=== PATIENT | male | born 1960 | race Caucasian/White ===

== ENCOUNTER 2017-09-08 23:04 | Observation (INO) | payer SELFPAY ==
--- NOTE | ~2017-09-08 | HEMODYNAMI ---
PATIENT:SHANNON GERMAN MEDICAL RECORD: [id number] : 58 [facility] D[id number] ADMISSION DATE: 09/09/17 Generatedon:09/10/201711:06 Patient name: SHANNON GERMAN Patient #: [id number] : 1960 Date of study: 09/10/2017 Page: Of Hemodynamic Procedure Report Patient Data Patient Demographics Procedure consent was obtained First Name: SHANNON Gender: Male Last Name: MAXI : 1960 [facility] Initial: C Age: 57 year(s) Patient #: [id number] Race: Unknown SSN: [id number] Additional ID: [id number] Contact details [address]: [address] [place] [address] State: [place] City: [place] Zip code: [address] Past Medical History Allergies: No known allergies Admission Admission Data Admission Date: 09/09/2017 Admission Time: 9:05 Arrival Date: 09/10/2017 Arrival Time: 0:00 Admit Source: Other Room #: D.2123 Weight (lbs.): 220.46 Weight (kg.): 100 Lab Results Lab Result Date: 09/10/2017 Lab Result Time: 0:00 Biochemistry Name Units Result Min Max BUN mg/dl 16 --(---*)-- 7 18 Creatinine mg/dl 0.9 --(-*--)-- 0.6 1.3 CBC Name Units Result Min Max Hemoglobin g/dl 11.7 *-(----)-- 13.5 17.5 Procedure Procedure Types Cath Procedure Diagnostic Procedure C [facility] w/Coronaries PCI Procedure Coronary Stent Coronary Stent Initial Miscellaneous Procedures Moderate Sedation up to 15 minutes Moderate Sedation up to 30 minutes Procedure Description Procedure Date Procedure Date: 09/10/2017 Procedure Start Time: 10:42 Procedure End Time: 11:03 Procedure Staff Name Function August Alvarado MD Performing Physician Michelle Dejesus RT Monitor Shameka Arias RT Scrub Sammy Segura RN Nurse Procedure Data Cath Procedure Fluoroscopy Diagnostic fluoroscopy Total fluoroscopy Time: 4.3 time: 4.3 min min Diagnostic fluoroscopy Total fluoroscopy dose: 953 dose: 953 mGy mGy Contrast Material Contrast Material Type Amount (ml) Isovue 300 118 Entry Location Entry Primary Successful Side Size Upsize Upsize Entry Closure Succes sful Closure Location (Fr) 1 (Fr) 2 (Fr) Remarks Device Remarks Femoral Right 5 Fr 6 Fr Exoseal artery Short Estimated blood loss: 10 ml Diagnostic catheters Device Type Used For End Catheter Placement Cordis 5Fr JL 4.0 Procedure Catheter (MP) Cordis 5Fr 3DRC Catheter Procedure (MP) Cordis 5Fr Pigtail Procedure Catheter (MP) Procedure Complications No complications Procedure Medications Medication Administration Route Dosage Oxygen NC 2 l/min Lidocaine 2% added to field 20 Heparin Flush Bag added to field 2 bags (1000units/500ml NS) 0.9% NaCl I.V. 100 ml/hr Versed I.V. 1 mg Fentanyl I.V. 50 mcg Versed I.V. 1 mg Fentanyl I.V. 50 mcg Heparin Bolus I.V. 4000 units Integrilin (Bolus I.V. 9 ml 2mg/ml) Plavix P.O. 600 mg Hemodynamics Rest HGB: 11.7 (g/dl) Heart Rate: 82 (bpm) Pressure Samples Time Site Value (mmHg) Purpose Heart Use Rate(bpm) 10:48 LV 138/4,30 Snapshot 77 10:49 AO 137/86(108) Pullback 78 10:49 LV 126/16,31 Pullback 78 Gradients Valve Time Site 1 Site 2 Mean SEP/DFP Peak To Heart Use (mmHg) (sec/min) Peak Rate (mmHg) (bpm) Aortic 10:49 LV AO 0 11 0 78 126/16,31 137/86(108) Calculations Valve P-P Mean Valve Index Valve Source Name Gradient Area Flow (cm2) Aortic 0 0 0 0 Snapshots Pre Cath Intra NCS Post Cath Vital Signs Time Heart Resp SPO2 etCO2 NIBP (mmHg) Rhythm Pain Sedation Rate (ipm) (%) (mmHg) Status Level (bpm) 10:32:27 81 14 95 0 157/87(129) NSR 0 (11) 10(A) , No pain 10:37:18 78 17 98 0 139/95(116) NSR 0 (11) 10(A) , No pain 10:42:06 80 16 96 0 148/93(107) NSR 0 (11) 9(A) , No pain 10:47:01 77 15 97 0 131/72(111) NSR 0 (11) 9(A) , No pain 10:51:48 76 12 97 1.5 140/82(111) NSR 0 (11) 9(A) , No pain 10:56:37 77 14 96 17.4 147/90(109) NSR 0 (11) 9(A) , No pain 11:01:30 76 16 96 0.7 148/84(102) NSR 0 (11) 10(A) , No pain Medications Time Medication Route Dose Verified Delivered Reason Notes Effectiveness by by 10:35:59 Oxygen NC 2 August Buffie used for l/min St. Jevon Segura RN procedure 10:36:07 Lidocaine 2% added 20ml August August for local to vial [facility] anesthetic field MD BACA 10:36:14 Heparin Flush added 2 August August used for Bag to bags [facility] procedure (1000units/500ml field MD BACA NS) 10:36:24 0.9% NaCl I.V. 100 August Christianson Per physician ml/hr St. Jevon Segura RN, MD 10:38:42 Versed I.V. 1 mg August Dacostaie for sedation St. Jevon Segura RN, MD 10:38:48 Fentanyl I.V. 50 August Christianson for sedation mcg St. Jevon Segura RN, MD 10:42:26 Versed I.V. 1 mg August Christianson for sedation St. Jevon Segura RN, MD 10:42:31 Fentanyl I.V. 50 August Dacostaie for sedation mcg St. Jevon Segura RN, MD 10:50:34 Heparin Bolus I.V. 4000 August Christianson for units [facility]. Jevon Segura RN anticoagulation 10:51:53 Integrilin I.V. 9 ml August Dacostaie for (Bolus 2mg/ml) St. Jevon Segura RN antiplatelet therapy 11:05:06 Plavix P.O. 600 August Christianson for mg [facility]. Jevon Segura RN antiplatelet therapy Procedure Log Time Note 10:04:51 Sammy Segura RN sent for patient. Start room use. 10:04:52 Time tracking: Regular hours 10:04:56 Plan of Care:Hemodynamics will remain stable., Cardiac rhythm will remain stable., Comfort level will be maintained., Respiratory function will remain adequate., Patient/ family verbilizes understanding of procedure., Procedure tolerated without complication., Recovers from procedure without complications.. 10:16:44 Procedure type changed to Cath procedure, Diagnostic procedure, LHC, LHC w/Coronaries, PCI procedure, Coronary Stent, Coronary Stent Initial, Miscellaneous Procedures, Moderate Sedation up to 15 minutes, Moderate Sedation up to 30 minutes 10:16:54 Patient Weight : 220.46 lbs 10:24:03 Admit Source: Other 10:24:10 Arrival Date: 09/10/2017 12:00:00 AM 10:25:08 Patient received from ED to CCL 1 Alert and oriented. Tansferred to table in Supine position. 10:31:14 Warm blankets applied, and anne marie hugger turned on for patient comfort. 10:31:15 Correct patient and procedure confirmed by team. 10:31:16 Signed procedure consent form obtained from patient. 10:31:17 ECG and BP/O2 sat monitors applied to patient. 10:31:17 Vital chart was started 10:32:32 Baseline sample Acquired. 10:32:40 Rhythm: sinus rhythm 10:32:42 Full Disclosure recording started 10:32:47 H&P Date Dictated: 09/10/2017 Within 30 days and on chart.. 10:32:49 Pre-procedure instructions explained to patient. 10:32:53 Family in patients room. 10:32:56 Patient NPO since Midnight. 10:33:03 Patient allergic to No known allergies 10:33:06 Is the patient allergic to Iodine/contrast media? No. 10:33:09 Is patient on blood thinner?Yes 10:33:13 ACC The patient was administered the following blood thiners within the last 24 hours: ACCLovenox 10:33:16 Patient diabetic? No. 10:33:21 Snore? Yes 10:33:22 Sleep apnea? No 10:33:31 Patient pain scale 0/10 ?. 10:33:39 IV patent on arrival in left forearm with 0.9% NaCl at KVO. 10:33:45 Lab results completed and on chart. 10:33:50 Right groin area was prepped with chlora-prep and draped in sterile fashion 10:33:52 Alarms reviewed by R. N. 10:33:53 Sharps counted by scrub and verified by R.N. 10:33:54 Physician arrived 10:33:56 --------ALL STOP TIME OUT------ 10:33:57 Final Timeout: patient, procedure, and site verified with staff and physician. All members of the team are in agreement. 10:33:59 Right groin site verified by team. 10:34:03 Physical assessment completed. ASA score P 2 - A patient with mild systemic disease as per August Alvarado MD. 10:34:08 Sedation plan: IV Moderate Sedation Medication:Versed, Fentanyl 10:34:15 Use device set Femoral Dx 10:34:16 Acist Syringe opened to sterile field. 10:34:16 Bag Decanter opened to sterile field. 10:34:17 Medline Cath Pack opened to sterile field. 10:34:17 Terumo 5Fr Madison Sheath opened to sterile field. 10:34:18 St Gurjit 260cm J .035 wire opened to sterile field. 10:34:19 Acist Hand Control opened to sterile field. 10:34:19 Acist Manifold opened to sterile field. 10:34:20 Diagnostic Infinity 5Fr Multipack catheter opened to sterile field. 10:34:20 Tegaderm 4 x 4 opened to sterile field. 10:35:59 Oxygen 2 l/min NC was administered by Sammy Segura RN; used for procedure; 10:36:07 Lidocaine 2% 20ml vial added to field was administered by August Alvarado MD; for local anesthetic; 10:36:14 Heparin Flush Bag (1000units/500ml NS) 2 bags added to field was administered by August Alvarado MD; used for procedure; 10:36:24 0.9% NaCl 100 ml/hr I.V. was administered by Sammy Segura RN; Per physician; 10:38:42 Versed 1 mg I.V. was administered by Sammy Segura RN; for sedation; 10:38:48 Fentanyl 50 mcg I.V. was administered by Sammy Segura RN; for sedation; 10:41:26 Lab Result : BUN 16 mg/dl 10:41:26 Lab Result : Hemoglobin 11.7 g/dl 10:41:26 Lab Result : Creatinine 0.9 mg/dl 10:41:35 Zero performed for pressure channel P1 10:42:26 Versed 1 mg I.V. was administered by Sammy Segura RN; for sedation; 10:42:31 Fentanyl 50 mcg I.V. was administered by Sammy Segura RN; for sedation; 10:42:34 Procedure started. 10:42:56 Local anesthetic to right femoral artery with Lidocaine 2% by August Alvarado MD.INITIAL ACCESS ONLY 10:43:30 A 5 Fr sheath was inserted into the Right Femoral artery 10:44:45 J wire advanced. 10:44:53 A Cordis 5Fr JL 4.0 Catheter (MP) was advanced over the wire and used for Procedure. 10:45:06 LCA angiography performed. 10:46:09 Catheter removed. 10:46:22 A Cordis 5Fr 3DRC Catheter (MP) was advanced over the wire and used for Procedure. 10:46:29 RCA angiography performed. 10:47:27 Catheter removed. 10:47:35 A Cordis 5Fr Pigtail Catheter (MP) was advanced over the wire and used for Procedure. 10:47:38 LV gram done using FERNANDEZ 10:50:34 Heparin Bolus 4000 units I.V. was administered by Sammy Segura RN; for anticoagulation; 10:50:53 EF : 55 % 10:50:57 Catheter removed. 10:51:11 Sheath upsized to a 6 Fr Short. 10:51:35 6 Fr xb3.5 guide catheter was inserted over the wire 10:51:53 Integrilin (Bolus 2mg/ml) 9 ml I.V. was administered by Sammy Segura RN; for antiplatelet therapy; 10:52:40 Whisper wire advanced. 10:53:21 Terumo 6Fr Madison Sheath opened to sterile field. 10:53:22 Giant Swarm BasixCompak Inflation Kit opened to sterile field. 10:53:22 Cordis 6FR XB 3.5 guide catheter opened to sterile field. 10:53:23 Jaime Whisper J 300cm 0.014 guide wire opened to sterile field. 10:55:54 Inflation Number: 1 A TextMastertronic Integrity 3.0 X 12 stent was prepped and advanced across the Dist CX. The stent was deployed at 14 JOEL for 0:24 (min:sec). 10:56:26 Stent catheter was removed intact over wire. 10:59:10 Inflation Number: 1 A Medtronic Integrity 3.0 X 18 stent was prepped and advanced across the Mid CX. The stent was deployed at 14 JOEL for 0:28 (min:sec). 10:59:14 Stent catheter was removed intact over wire. 10:59:29 Wire removed. 10:59:30 Guide catheter removed. 10:59:39 Cordis 6Fr Exoseal opened to sterile field. 11:00:55 Sheath removed intact; hemostasis achieved with Exoseal to the Right Femoral artery. 11:00:59 Procedure ended.(Physican Out) 11:01:10 Fluoroscopy time 04.30 minutes. 11:01:15 Fluoroscopy dose: 953 mGy 11::15 Flurop Dose total: 953 11:01:21 Contrast amount:Isovue 300 118ml. 11:01:22 Sharps counted by scrub and verified by R.N. 11:01:25 Insertion/operative site no bleeding no hematoma. 11:01:27 Post Procedure Pulses reassessed and unchanged 11:01:31 Post procedure rhythm: unchanged. 11:01:34 Estimated blood loss: 10 ml 11:01:36 Post procedure instruction explained to patient.Patient verbalizes understanding. 11:02:07 Procedure and supply charges have been captured, reviewed, submitted and are correct. 11:02:55 Procedure Complication : No complications 11:02:58 Vital chart was stopped 11:02:58 See physician's report for complete and final results. 11:03:01 Report given to [facility]. 11:03:04 Patient transfered to [facility] with Stretcher. 11:03:07 Procedure ended. 11:03:07 Full Disclosure recording stopped 11:03:23 End room use (Document Last) 11:04:58 ACC-PCI Only Patient was given prescriptions, or instructed by August Alvarado MD to start/continue the following medications upon discharge: Plavix 11:05:06 Plavix 600 mg P.O. was administered by Sammy Segura RN; for antiplatelet therapy; Intervention Summary Intervention Notes Time ActionType Lesion and Equipment Action# Pressure Duration Attributes Used 10:55:54 Place stent Dist CX Medtronic 1 14 00:24 Integrity 3.0 X 12 stent 10:59:10 [address] stent Mid CX Medtronic 1 14 00:28 Integrity 3.0 X 18 stent Device Usage Item Name Manufacture Quantity Catalog Hospital Part Current Minimal L ot# / Number Charge Number Stock Stock Serial# Code Acist Acist 1 91875 712923 982347 094594 20 Syringe Medical Systems Inc Bag Microtek 1 2002S 391188 91113 165725 5 DecVariab.ly Medical Inc. Medline Cardinal 1 [id number] 151634 63905 351027 5 Cath Pack Health Terumo 5Fr Terumo 1 [id number] 928494 638286 869974 [address] Gurjit 1 966140 128459 051970 002509 30 260cm J .035 wire Acist Hand Acist 1 74478 905352 772841 066296 5 Control Medical Systems Inc Acist Acist 1 78163 420571 905334 994623 5 Tellyo Medical Systems Inc Diagnostic Cardinal 1 [id number] 584987 81137 478428 30 HASHity Health 5Fr Multipack catheter Tegaderm 4 3M 1 1626W 764345 392549 481652 5 x 4 Cordis 5Fr Cardinal 1 596742 5 JL 4.0 Health Catheter (MP) Cordis 5Fr Cardinal 1 403651 5 3DRC Health Catheter (MP) Cordis 5Fr Cardinal 1 894197 5 Pigtail Health Catheter (MP) Terumo 6Fr Terumo 1 FSM443 044663 995126 170689 40 Madison Sheath Merit Merit 1 QG3443 640379 397138 736932 15 WriteReader ApSLogan Regional HospitalLemon Curve Medical Inflation Kit Cordis 6FR Cardinal 1 [id number] 585525 387929 270194 2 XB 3.5 Health guide catheter Jaime Jaime 1 [id number] 488028 477755 805490 5 Whisper J Vascular 300cm 0.014 guide wire Medtronic Medtronic 1 [id number] 053025 684991 1 0 [id number] Integrity 3.0 X 12 stent Medtronic Medtronic 1 [id number] 413978 498036 1 0 [id number] Integrity 3.0 X 18 stent Cordis 6Fr Cardinal 1 EX600 558443 688869 610162 10 Sense.ly Signature Audit [place] Stage Time Signature Unsigned Intra-Procedure 09/10/2017 Michelle Dejesus 11:06:01 AM RT(R) Signatures Monitor : Michelle Dejesus Signature : RT Date : Time : [facility] [address] [place] [address]
[2017-09-09 00:12] LABS: BASOPHILS 0.2 % (0-2); EOSINOPHILS 1.9 % (0-7); HEMATOCRIT 38.9 % (42.0-54.0); IMMATURE GRANULOCYTES 0.2 % (0-5); LYMPHOCYTES 14.1 % (15-50); MCHC 33.4 g/dL (31.0-37.0); MCV 86.6 fL (80.0-100.0); MEAN PLATELET VOLUME 9.7 fL (7.4-10.4); MONOCYTES 6.7 % (2-11); NEUTROPHILS 76.9 % (40-80); PLATELET COUNT 248 10x3/uL (130-400); RBC 4.49 10x6/uL (4.20-6.10); RDW 12.7 % (11.5-14.5); WBC 10.8 10x3/uL (4.8-10.8)
[2017-09-09 00:31] LABS: ALBUMIN 3.3 g/dL (3.4-5.0); ALKALINE PHOSPHATASE 83 U/L (46-116); ALT (SGPT) 41 U/L (10-68); CALC OSMOLALITY 282 mosm/kg (275-300); CALCIUM 8.4 mg/dL (8.5-10.1); CARBON DIOXIDE 27.1 mmol/L (21.0-32.0); CHLORIDE - SERUM 102 mmol/L (98-107); GLUCOSE 226 mg/dL (74-106); POTASSIUM - SERUM 4.1 mmol/L (3.5-5.1); PROTEIN - SERUM 7.2 g/dL (6.4-8.2); SODIUM 136 mmol/L (136-145); UREA NITROGEN 23 mg/dL (7-18); eGFR NON AFRICAN AMERICAN 81 mL/min (90-120)
[2017-09-09 00:40] LABS: CHOLESTEROL, TOTAL 157 mg/dL (0-200); CKMB 1.1 U/L (0.0-3.6); CREATINE KINASE 75 UL (21-232); HDL CHOLESTEROL 26 mg/dL (32-96); LDL CHOLESTEROL 110 mg/dL (0-100); LDL-HDL RATIO 4.2 ratio (1.5-3.5); TRIGLYCERIDE 108 mg/dL (30-200); TROPONIN-I < 0.017 ng/mL (0.000-0.060)
[2017-09-09 04:34] LABS: CKMB 0.9 U/L (0.0-3.6); CREATINE KINASE 62 UL (21-232)
[2017-09-09 04:35] LABS: TROPONIN-I < 0.017 ng/mL (0.000-0.060)
[2017-09-09 11:00] LABS: CKMB 0.4 U/L (0.0-3.6); CREATINE KINASE 50 UL (21-232)
[2017-09-09 11:03] LABS: TROPONIN-I < 0.017 ng/mL (0.000-0.060)
[2017-09-09 15:22] LABS: CKMB 0.3 U/L (0.0-3.6); CREATINE KINASE 41 UL (21-232)
[2017-09-09 15:28] LABS: TROPONIN-I < 0.017 ng/mL (0.000-0.060)
--- NOTE | 2017-09-09 16:54 | NUR ---
RECEIVED REPORT FROM [facility] IN ER. PATIENT TO UNIT SOON.
--- NOTE | 2017-09-09 17:20 | NUR ---
RECEIVED PATIENT TO ROOM 2123 VIA GERNEY FROM ED. PATIENT ALERT/ORIENTED. ABLE TO TRANSFER SELF ONTO BED. PATIENT COMPLAINING OF CHEST PAIN. TELEMETRY APPLIED.
--- NOTE | 2017-09-09 17:30 | NUR ---
PHARMACY NOT HERE TO LINK MEDICATIONS TO PYXIS. HAD TO OVERRIDE MORPHINE AND ZOFRAN AT THIS TIME. PATIENT COMPLAIN OF CHEST PAIN, DIAPHORETIC. PATIENTS GIRLFRIEND AT BEDSIDE. CALL LIGHT WITHIN REACH. NO DISTRESS.
--- NOTE | 2017-09-09 19:00 | NUR ---
RESTING IN BED WITH EYES CLOSED, EASILY AROUSED. FEMALE FRIEND AT BEDSIDE. NO DISTRESS. CALL LIGHT WITHIN REACH.
[2017-09-09 21:07] VITALS: BP 142/73
[2017-09-10 00:42] VITALS: BP 149/63
[2017-09-10 04:46] VITALS: BP 163/73
--- NOTE | 2017-09-10 07:30 | NUR ---
PT RESTING QUIETLY EYES CLOSED RESP UNLABORED NAD NOTED
[2017-09-10 07:51] VITALS: BP 137/70
[2017-09-10 09:05] LABS: BASOPHILS 0.1 % (0-2); EOSINOPHILS 1.9 % (0-7); HEMATOCRIT 35.7 % (42.0-54.0); HEMOGLOBIN 11.7 g/dL (13.5-17.5); IMMATURE GRANULOCYTES 0.2 % (0-5); LYMPHOCYTES 13.9 % (15-50); MCH 28.7 pg (26.0-34.0); MCHC 32.8 g/dL (31.0-37.0); MCV 87.7 fL (80.0-100.0); MEAN PLATELET VOLUME 9.5 fL (7.4-10.4); MONOCYTES 9.1 % (2-11); NEUTROPHILS 74.8 % (40-80); PLATELET COUNT 221 10x3/uL (130-400); RBC 4.07 10x6/uL (4.20-6.10); RDW 12.6 % (11.5-14.5); WBC 9.8 10x3/uL (4.8-10.8)
[2017-09-10 09:08] LABS: CALC OSMOLALITY 277 mosm/kg (275-300); CALCIUM 7.9 mg/dL (8.5-10.1); CARBON DIOXIDE 28.8 mmol/L (21.0-32.0); CHLORIDE - SERUM 102 mmol/L (98-107); CREATININE - SERUM 0.9 mg/dL (0.6-1.3); GLUCOSE 216 mg/dL (74-106); POTASSIUM - SERUM 4.1 mmol/L (3.5-5.1); SODIUM 135 mmol/L (136-145); UREA NITROGEN 16 mg/dL (7-18); eGFR NON AFRICAN AMERICAN > 90 mL/min (90-120)
--- NOTE | 2017-09-10 11:39 | CN ---
PATIENT NAME:SHANNON GERMAN MEDICAL RECORD: [id number] : 58 LOCATION:[facility] D.2123 ADMIT DATE: 09/09/17 ACCOUNT: [id number] CONSULTING PHYSICIAN: AMNA KOROMA MD REFERRING PHYSICIAN: NELLA CARD MD DATE OF CONSULTATION: 09/10/2017 HISTORY OF PRESENT ILLNESS: A 57-year-old gentleman with no known cardiovascular history, admitted with chest pressure and tightness with exertion and fairly classic for angina and found to have an abnormal ECG. Cardiac enzymes are negative. Currently, we are asked to see him concerning his cardiovascular status. PAST MEDICAL HISTORY: Unremarkable. Intermittent gastroesophageal reflux disease. ALLERGIES: None known. MEDICATIONS: None chronically. SOCIAL HISTORY: , lives here in [place]. Nonsmoker. No illicit drug. REVIEW OF SYSTEMS: The patient reports easy bruising but reports no swollen glands. The patient reports no fever, no night sweats, no significant weight gain, no significant weight loss. No significant exercise tolerance. The patient reports no dry eyes, no irritation, no vision change. Patient reports no difficulty hearing and no ear pain. Patient reports no frequent nose bleeds or nose and sinus problems. Patient reports on arm pain on exertion. No shortness of breath while lying down. No history of heart murmur. Patient reports no cough, no wheezing or coughing up blood. Patient reports no abdominal pain, no vomiting. Normal appetite. No diarrhea and not vomiting blood. No nausea and no constipation. Patient reports no incontinence. No difficulty urinating. No hematuria. No increased frequency. Patient reports no muscle aches. No weakness, no arthralgias, no back pain. No swelling of the extremities. Patient reports no abnormal mole, no jaundice, no rashes. Reports no loss of consciousness. No weakness and no numbness. No seizures, dizziness, or headaches. The patient reports no depression, no sleep disturbance, feeling safe in a relationship and no alcohol abuse. Patient reports on fatigue. Reports no runny nose or sinus pressure. No itching, no hives, and no frequent sneezing. PHYSICAL EXAMINATION: GENERAL: Pleasant gentleman, in no acute distress, currently comfortable. VITAL SIGNS: Blood pressure 130/70, pulse 82 and regular. HEENT: Normocephalic, atraumatic. NECK: No bruits. HEART: Regular. LUNGS: Maravilla clear. ABDOMEN: Soft, nontender. EXTREMITIES: Pulse 2+ with no edema. NEUROLOGIC: Grossly intact. DIAGNOSTIC DATA: ECG is abnormal as described above. CONSULT REPORT [id number] SHANNON GERMAN IMPRESSION: Exertional angina. PLAN: For angiography. Intervention based on the above. TRANSINT:[id number] Voice Confirmation ID: [id number] DOCUMENT ID: [id number] AMNA KOROMA MD at 1139 CC: [id number] DICTATION DATE: 09/10/17834 BUTTON TUFTER: 09/10/17 1024 ADM IN [facility] [address] [place] [address]
[2017-09-10 12:00] VITALS: BP 138/78
[2017-09-10] MEDS ORDERED: ASPIRIN EC81 M1 PO (12:31)
[2017-09-10] MEDS ORDERED: LIPITOR10 MG PO (12:39)
[2017-09-10] MEDS ORDERED: PLAVIX75 MG PO (12:39)
--- NOTE | 2017-09-10 16:08 | NUR ---
PERIPHERAL IV REMOVED, CATHETER INTACT AND NO REDNESS OR SWELLING NOTED. DISCHARGE INSTRUCTIONS REVIEWED WITH PATIENT AND FAMILY AND PATIENT VERBALIZES UNDERSTANDING. PATIENT DISCHARGED HOME AT THIS TIME AND LEAVES FACILITY VIA PERSONAL VEHICLE. ALL PERSONAL BELONGINGS SENT HOME WITH PATIENT.
--- NOTE | 2017-09-11 09:07 | OP ---
PATIENT NAME: SHANNON GERMAN MEDICAL RECORD: [id number] :58 LOCATION:D. D.2123 ADMISSION DATE:09/09/17 SURGEON: AMNA KOROMA MD DATE OF OPERATION: 09/10/2017 PROCEDURE: Left heart catheterization, selective coronary angiography, right femoral approach. CATHETERS: A 5-Yemeni sheath, 5/4 left and right Tonia, 5/4 pig. The procedure was well tolerated. The patient returned to the phillips, sheath removed. We proceeded with PTCA and stenting of the circumflex. FINDINGS: Left ventriculography in the 30-degree FERNANDEZ view: Normal wall motion, normal systolic function. CORONARY ANATOMY. LEFT MAIN: Left main is free of disease. LAD: Free of disease in the diagonal system. CIRCUMFLEX: Circumflex has diffuse 80% stenosis, one at distal third and one at the proximal third. RIGHT CORONARY ARTERY: Dominant artery, gives rise to PDA, free of disease. IMPRESSION: Single-vessel disease involving circumflex. PLAN: Intervention of this vessel momentarily. DESCRIPTION OF PROCEDURE: A 5-Yemeni sheath was changed for a 6-Yemeni sheath. An XB 3.5 guiding catheter provided good guide support followed by a 300 cm Whisper wire was placed across both lesions in the circumflex down this portion of vessel. Stent deployed distally with a 3.0 x 12 mm Integrity nondrug-eluting stent up to 14 atmospheres proximally, a longer 3.0 x 18 mm Integrity stent was inflated up to 14 atmospheres. Again, final angiography shows excellent resolution of two 80% stenosis, proximal more diffuse. KASIA flow was 3 throughout the procedure. Integrilin was used in the case. Plavix was loaded in the lab. Sheath closed with ExoSeal device. TRANSINT:[id number] Voice Confirmation ID: [id number] DOCUMENT ID: [id number] AMNA KOROMA MD at 0907 CC: [id number] DICTATION DATE: 09/10/17 1107 ON CALL: 09/10/17 1218 DIS IN 09/10/17 [facility] [address] [place] [id number]
== END 2017-09-10 16:12 | disposition home or self-care (01) ==
LOC: D.ER 23:04 → OBSVTIME 09-09 09:05 → D.M2 09-09 09:05 → D.ER 09-09 09:05 → D.SDCHOLD 09-09 09:05 → D.M2 09-10 16:12
PROVIDERS: Family Medicine; Internal Medicine Interventional Cardiology; ADMIT Emergency Medicine
DX: I25.119 Atherosclerotic heart disease of native coronary artery with unspecified angina pectoris (principal); K21.9 Gastro-esophageal reflux disease without esophagitis; R94.31 Abnormal electrocardiogram [ECG] [EKG]